=== PATIENT | male | born 1985 | race African-American/Black ===

== ENCOUNTER 2016-05-06 17:34 | Emergency (ER) | payer MEDICARE ==
[~2016-05-06] VITALS: Ht 180.3 cm; Wt 70.5 kg
[~2016-05-06 17:34] MED LIST: ALEVE220 M1 PO; LORTAB 5-325 MG1 TAB PO; PENICILLN VK500 MG PO
[2016-05-06 18:41] LABS: INFLUENZA A NONE DETECTED (NONE DETECT); INFLUENZA B NONE DETECTED (NONE DETECT)
[2016-05-06 19:41] LABS: HEMATOCRIT 40.1 % (39.0-50.0); HEMOGLOBIN 13.3 g/dl (14.0-18.0); IMMATURE GRANULOCYTES 0.4 % (0.0-1.0); MEAN CELL VOLUME 92.6 fL CALC (80.0-100.0); MEAN CORPUSCULAR HGB 30.7 pG CALC (26.0-32.0); MEAN CORPUSCULAR HGB CONC 33.2 g/L CALC (32.0-36.0); NEUT# 6.3 thou/uL (1.82-7.42); RED BLOOD COUNT 4.33 mill/uL (4.70-6.10); RED CELL DISTRI WIDTH 13.2 % (11.5-15.5)
[2016-05-06 20:05] LABS: ALBUMIN 4.3 g/dL (3.2-5.0); ALKALINE PHOSPHATASE 90 u/l (38-126); ANION GAP 18 (6-22 (CALC)); BILIRUBIN, TOTAL 0.5 mg/dL (0.0-1.4); BUN 11 mg/dL (9-20); BUN/CREATININE RATIO 15 (12-20 (CALC)); CALCIUM 9.3 mg/dL (8.4-10.2); CARBON DIOXIDE 23 mmol/l (22-30); CHLORIDE 102 mmol/l (95-108); CREATININE 0.7 mg/dL (0.7-1.3); GFR > 60 ML/MIN (>=60 (CALC)); GFR FOR AFR.AMER. > 60 ML/MIN (>=60 (CALC)); GLUCOSE 108 mg/dL (75-110); POTASSIUM 4.2 mmol/l (3.5-5.1); SGOT/AST 33 u/l (17-59); SGPT/ALT 37 u/l (21-72); SODIUM 139 mmol/l (137-146); TOTAL PROTEIN 7.4 g/dL (6.3-8.2)
[2016-05-06 20:17] LABS: MYOGLOBIN 38 ng/mL (0 - 121)
[2016-05-06 21:02] LABS: URINE BILIRUBIN - DIPSTICK NEGATIVE (NEGATIVE); URINE BLOOD DIPSTICK NEGATIVE (NEGATIVE); URINE CLARITY CLEAR; URINE COLOR YELLOW; URINE GLUCOSE - DIPSTICK NEGATIVE (NEGATIVE); URINE KETONE 15 mg/dL (NEGATIVE); URINE NITRITE - DIPSTICK NEGATIVE (Negative); URINE PH 5.5 (4.5-8.0); URINE PROTEIN - DIPSTICK TRACE mg/dL (NEG-TRACE); URINE SPECIFIC GRAVITY 1.025
[2016-05-06 21:16] LABS: URINE LEUK ESTERASE SMALL (NEGATIVE)
[2016-05-06 21:17] LABS: BARBITURATES NEGATIVE (NEGATIVE); COCAINE NEGATIVE (NEGATIVE); METHADONE NEGATIVE (NEGATIVE); OXCYCODONE NEGATIVE (NEGATIVE); TETRAHYDROCANNABIONOL POSITIVE (NEGATIVE); TRICYLIC ANTIDEPRESSANTS NEGATIVE (NEGATIVE)
[2016-05-06] MEDS ORDERED: AMOXICILLIN500 MG PO (21:24)
[2016-05-06] MEDS ORDERED: GUAIASORB DM1 ML PO (21:24)
[2016-05-06 21:39] VITALS: BP 119/69
[2016-05-06 21:46] LABS: URINE SQUAMOUS EPITHELIAL CELL FEW EPI/hpf (0-FEW)
[2016-05-06 21:47] LABS: URINE WBC 20-50 WBC/hpf (0-5)
== END 2016-05-06 21:40 | disposition home or self-care (01) ==
LOC: ED 17:34
PROVIDERS: Emergency Medicine
DX: J06.9 Acute upper respiratory infection, unspecified (principal); J40 Bronchitis, not specified as acute or chronic; R05 Cough; R09.81 Nasal congestion; R53.1 Weakness; F17.210 Nicotine dependence, cigarettes, uncomplicated; R50.9 Fever, unspecified; F12.90 Cannabis use, unspecified, uncomplicated; F11.90 Opioid use, unspecified, uncomplicated

== ENCOUNTER 2016-06-12 07:31 | Observation (INO) | payer MEDICARE ==
[~2016-06-12] VITALS: Ht 185.4 cm; Wt 70.0 kg
[~2016-06-12 07:31] MED LIST changes: +AMOXICILLIN500 MG PO; +GUAIASORB DM1 ML PO
[2016-06-12 08:13] LABS: HEMATOCRIT 37.7 % (39.0-50.0); HEMOGLOBIN 12.3 g/dl (14.0-18.0); IMMATURE GRANULOCYTES 0.3 % (0.0-1.0); MEAN CELL VOLUME 95.2 fL CALC (80.0-100.0); MEAN CORPUSCULAR HGB 31.1 pG CALC (26.0-32.0); MEAN CORPUSCULAR HGB CONC 32.6 g/L CALC (32.0-36.0); NEUT# 6.37 thou/uL (1.82-7.42); RED BLOOD COUNT 3.96 mill/uL (4.70-6.10); RED CELL DISTRI WIDTH 13.7 % (11.5-15.5)
[2016-06-12 09:25] LABS: ANION GAP 15 (6-22 (CALC)); BUN 10 mg/dL (9-20); BUN/CREATININE RATIO 14 (12-20 (CALC)); CALCIUM 9.5 mg/dL (8.4-10.2); CARBON DIOXIDE 23 mmol/l (22-30); CHLORIDE 107 mmol/l (95-108); CREATININE 0.7 mg/dL (0.7-1.3); GFR > 60 ML/MIN (>=60 (CALC)); GFR FOR AFR.AMER. > 60 ML/MIN (>=60 (CALC)); GLUCOSE 79 mg/dL (75-110); POTASSIUM 4.3 mmol/l (3.5-5.1); SODIUM 141 mmol/l (137-146)
[2016-06-12 10:53] VITALS: BP 120/78
[2016-06-12] MEDS ORDERED: FLORASTOR250 M1 PO (14:50)
[2016-06-12] MEDS ORDERED: IBUPROFEN600 MG PO (14:50)
[2016-06-12] MEDS ORDERED: CLEOCIN150 MG PO (14:50)
== END 2016-06-12 15:35 | disposition home or self-care (01) ==
LOC: ENPENDDIS → ED 07:31 → ED-I 10:24 → ED 10:29 → MS2 10:30
PROVIDERS: Emergency Medicine; ADMIT Internal Medicine; ATTEND Internal Medicine
DX: K04.7 Periapical abscess without sinus (principal); L03.211 Cellulitis of face; F17.210 Nicotine dependence, cigarettes, uncomplicated; F12.90 Cannabis use, unspecified, uncomplicated
CPT/HCPCS: Q9967

== ENCOUNTER 2016-09-29 08:50 | Emergency (ER) | payer MEDICARE, OTHER ==
[~2016-09-29] VITALS: Ht 185.4 cm; Wt 75.0 kg
[~2016-09-29 08:50] MED LIST changes: +CLEOCIN150 MG PO; +FLORASTOR250 M1 PO; +IBUPROFEN600 MG PO
[2016-09-29] MEDS ORDERED: FLEXERIL PO (10:02)
[2016-09-29] MEDS ORDERED: NAPROSYN500 MG PO (10:02)
[2016-09-29 10:12] VITALS: BP 117/71
== END 2016-09-29 10:20 | disposition home or self-care (01) ==
LOC: ED 08:50
DX: M47.816 Spondylosis without myelopathy or radiculopathy, lumbar region (principal); F31.9 Bipolar disorder, unspecified; F90.9 Attention-deficit hyperactivity disorder, unspecified type; F20.9 Schizophrenia, unspecified; F17.210 Nicotine dependence, cigarettes, uncomplicated